=== PATIENT | male | born 1950 | race Caucasian/White ===

== ENCOUNTER 2016-10-28 20:41 | Emergency (ER) | payer MEDICARE, MEDICAID ==
--- NOTE | 2016-10-28 20:41 | NUR ---
INFORMED BY PARAMEDICS "PT WANTS TO LEAVE AND DOESNT WANT TO BE SEEN BY MD". DR. FLORES NOTIFIED. DENIES ANY C/O AT THIS TIME
== END 2016-10-28 22:19 | disposition left against medical advice (07) ==
LOC: ER 20:49
DX: Z53.21 Procedure and treatment not carried out due to patient leaving prior to being seen by health care provider (principal)